=== PATIENT | female | born 1970 | race Caucasian/White ===

== ENCOUNTER → 2016-07-07 | Outpatient (CLI) | payer BC, OTHER ==
[~2016-07-07] MED LIST: LISI-170 PO; OXYC-223 PO; SUMA100T3 PO
[2016-07-07 14:18] LABS: ASPARTATE AMINO TRANSFERASE 16 U/L (15-37); BLOOD UREA NITROGEN 12 mg/dL (7-18)
== END | disposition home or self-care (01) ==
LOC: STAR 13:06
PROVIDERS: ATTEND Obstetrics & Gynecology Gynecology
DX: Z01.818 Encounter for other preprocedural examination (principal); N94.5 Secondary dysmenorrhea; N92.0 Excessive and frequent menstruation with regular cycle; D25.9 Leiomyoma of uterus, unspecified; Z90.5 Acquired absence of kidney
CPT/HCPCS: 36415; 80053; 81003; 84703; 85025

== ENCOUNTER 2016-07-13 05:49 | Day surgery (SDC) | payer BC, OTHER ==
[~2016-07-13] VITALS: Ht 154.9 cm; Wt 68.0 kg
[2016-07-13] MEDS ORDERED: LACTATED RINGERS 1,000 ML IV SCH (06:18)
[2016-07-13 06:19] VITALS: BP 115/81
[2016-07-13] MEDS ORDERED: LIDOCAINE 1%, 2ML SQ PRN (06:30)
[2016-07-13] MEDS ORDERED: SCOP1PAT TD (06:39)
[2016-07-13 06:43] LABS: HCG UR OBC PASS
[2016-07-13] MEDS ORDERED: FLUORESCEIN SODIUM 500 MG/5 ML ONE (06:43)
[2016-07-13] MEDS ORDERED: LIDOCAINE 1%-EPI 1:100K, 50ML ONE (06:43)
[2016-07-13] MEDS ORDERED: MIDAZOLAM 1 MG/ML, 2ML ONE (07:17)
[2016-07-13] MEDS ORDERED: FENTANYL PF 250 MCG/5ML ONE (07:18)
[2016-07-13] MEDS ORDERED: ONDANSETRON 2MG/ML, 2ML ONE (07:19)
[2016-07-13] MEDS ORDERED: ROCURONIUM 10 MG/ML ONE (07:19)
[2016-07-13] MEDS ORDERED: KETOROLAC 30 MG/1 ML ONE (07:19)
[2016-07-13] MEDS ORDERED: CEFAZOLIN 1,000 MG ONE (07:19)
[2016-07-13] MEDS ORDERED: SUCCINYLCHOLINE 20 MG/ML, 10ML ONE (07:19)
[2016-07-13] MEDS ORDERED: PROPOFOL 10 MG/ML, 20ML ONE (07:19)
[2016-07-13] MEDS ORDERED: DEXAMETHASONE 4 MG/ML, 1ML ONE (07:19)
[2016-07-13] MEDS ORDERED: SILVER NITRATE STICK TP ONE (07:30)
[2016-07-13] MEDS ORDERED: METRONIDAZOLE PMX 500MG/100ML 100 ML ONE (07:31)
[2016-07-13] MEDS ORDERED: ACETAMINOPHEN 325 MG TABLET PO PRN (08:00)
[2016-07-13] MEDS ORDERED: METOCLOPRAMIDE 5 MG/ML, 2ML IV PRN (08:00)
[2016-07-13] MEDS ORDERED: LABETALOL 5MG/ML, 20ML IV PRN (08:00)
[2016-07-13] MEDS ORDERED: hydrALAzine 20 MG/ML, 1ML IV PRN (08:00)
[2016-07-13] MEDS ORDERED: ONDANSETRON 2MG/ML, 2ML IVPush PRN (08:00)
[2016-07-13] MEDS ORDERED: OXYcodone 5 MG/5 ML ORAL.SOL UDC PO PRN (08:00)
[2016-07-13] MEDS ORDERED: OXYcodone 5 MG/5 ML ORAL.SOL UDC ONE (08:50)
[2016-07-13] MEDS ORDERED: FENTANYL PF 100 MCG/2ML ONE (08:50)
[2016-07-13] MEDS: FENTANYL PF 100 MCG/2ML IV PRN ×2 (08:52→09:01)
[2016-07-13] MEDS ORDERED: HYDROmorphone 2 MG/ML, 1ML ONE (09:08)
[2016-07-13] MEDS: HYDROmorphone 1 MG/ML, 1ML IV PRN ×2 (09:10→09:20)
[2016-07-13] MEDS ORDERED: OXYcodone/APAP 7.5/325MG TABLET ONE (11:44)
[2016-07-13] MEDS: OXYcodone/APAP 7.5/325MG TABLET PO PRN ×2 (11:50→14:56)
== END 2016-07-13 15:05 ==
LOC: OUT 05:49
PROVIDERS: ATTEND Obstetrics & Gynecology Gynecology
DX: N92.0 Excessive and frequent menstruation with regular cycle (principal); N94.6 Dysmenorrhea, unspecified; D25.9 Leiomyoma of uterus, unspecified; N85.8 Other specified noninflammatory disorders of uterus
CPT/HCPCS: 36415; 52000; 58270; 81025; 85014; 88307; J0330; J0690; J1100; J1170; J1885; J2250; J2405; J2704; J3010; J7120